=== PATIENT | female | born 1935 | race Caucasian/White ===

== ENCOUNTER 2017-03-01 13:39 | Emergency (ER) | payer MEDICARE ==
[~2017-03-01] VITALS: Ht 162.6 cm; Wt 63.5 kg
[~2017-03-01 13:39] MED LIST: AMLODIPINE BESYL5 MG PO; ASPIRIN EC81 M1 PO; ASPIRIN81 M1 PO; ATENOLOL50 MG PO; COD LIVER OIL1 CA1 PO; COD LIVER OIL1 CAP PO; COLACE PO; LASIX20 MG PO; LEVAQUIN750 M1 PO; LEVOTHYROXINE75 MCG PO; LISINOPRIL10 MG PO; LORTAB 7.5-5001 TAB PO; NORVASC PO; PRAVASTATIN SOD40 MG PO; PREDNISONE PO; PROTONIX PO; SYMBICORT INH; TENORMIN50 MG PO; VITAMIN D1000 UNIT PO; VITAMIN D2000 UNI1 PO; VITAMIN D2000 UNIT PO
== END 2017-03-01 15:28 | disposition home or self-care (01) ==
LOC: CED 13:39
DX: R20.9 Unspecified disturbances of skin sensation (principal); J44.9 Chronic obstructive pulmonary disease, unspecified; I10 Essential (primary) hypertension
CPT/HCPCS: 99283

== ENCOUNTER → 2017-03-16 | Outpatient (CLI) | payer MEDICARE ==
--- NOTE | ~2017-03-16 | MY29 ---
[facility] A Service of [facility] RADIOLOGY TEXT RESULTS PATIENT: DEREK ORTA LOCATION: [facility] : 33 UNIT #: [id number] AGE: [address]: Heraclio Farfan MD SEX: F ORDER DR: [id number] [facility] [address] [place], [place] [address] [id number] O MR#: [id number] #: [id number] NAME: DEREK ORTA : 1935 SEX: F STUDY DATE/TIME: 03/16/2017 15:42 UNIT: [facility] ROOM: STUDY DESCRIPTION: MY GEOVANNA SCREENING W/ CAD BILAT Attending Physician: Heraclio Farfan M.D. Referring Physician: Heraclio Farfan M.D. Ordering Physician: Heraclio Farfan M.D. Primary Care Physician: Heraclio Farfan M.D. MEDICAL IMAGING REPORT This report is preliminary unless electronic signature is present EXAM Digital screening mammogram 03/16/2017 HISTORY 81-year-old woman, positive family history. Annual screening. COMPARISON STUDIES Comparison mammograms date to 08/21/1905 with most recent screening comparison 02/18/2016. FINDINGS Digital imaging of each breast was completed utilizing screening protocol. Review includes FDA-approved CAD device. Breast parenchyma is only partially fatty replaced. The fibronodular opacities project in both subareolar locations with areas of fibronodular dominance noted in the inner hemispheres of both breast. This is particularly dominant in the lower inner quadrant of the right breast. 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 There are benign calcifications in both breasts. I see no interval occurring mass. There are no suspicious microcalcifications and no architectural deformity. IMPRESSION Stable benign mammogram. Annual screening recommended. BIRADS: 2 Benign Finding. Patients over the age of 40 are entered into a reminder system with target due date for the next mammogram. A result letter will also be sent to the patient. [facility] A Service of [facility] / [facility] RADIOLOGY TEXT RESULTS PATIENT: DEREK ORTA LOCATION: [facility] : 33 UNIT #: [id number] AGE: [address]: Heraclio Farfan MD SEX: F ORDER DR: Dictated by... Hima Leon M.D. THIS IS AN ELECTRONICALLY VERIFIED REPORT Hima Leon M.D. at 03/19/2017 8:08 AM DORIS/shanna TD: 03/16/2017 21:36 JOB #: [id number] MEDICAL IMAGING REPORT Page 1 of 1 COPY
== END | disposition home or self-care (01) ==
LOC: CWCC 15:22
DX: Z12.31 Encounter for screening mammogram for malignant neoplasm of breast (principal); Z80.3 Family history of malignant neoplasm of breast
CPT/HCPCS: G0202